=== PATIENT | female | born 2000 | race Hispanic/Latino ===

== ENCOUNTER 2019-03-17 14:11 | Outpatient (CLI) | payer OTHER ==
[2019-03-17 14:51] LABS: HCG Qualitative,Urine Negative (Negative)
== END 2019-03-17 14:12 | disposition home or self-care (01) ==
LOC: LAB 14:11
PROVIDERS: ATTEND Psychiatry & Neurology Psychiatry
DX: R11.2 Nausea with vomiting, unspecified (principal)
CPT/HCPCS: 81025